=== PATIENT | female | born 1950 | race Hispanic/Latino ===

== ENCOUNTER 2023-06-25 05:00 | Day surgery (SDC) | payer MEDICARE ==
[2023-06-23 13:16] VITALS: BP 144/67; PULSE 78; RESP 18
[2023-06-25] VITALS (11 sets, daily range): BP systolic 152–171; BP diastolic 60–79; PULSE 84–92; RESP 15–20
[~2023-06-25] VITALS: Ht 160 cm; Wt 147.0 kg
[~2023-06-25 05:00] MED LIST: ACET-66 PO; ALEN70TA80 PO; AMLO-258 PO; ATOR40TA71 PO; CLOP75TA32 PO; DICL20GE TP; DOCU100C33 PO; EMPA25TA PO; ERGOCALCIFEROL PO; ESCI5TAB16 PO; EUCA1LOZ MM; FAMO20TA8 PO; FERR324T4 PO; FOLIC ACID PO; GABA-534 PO; HYDR12.54 PO; INSU100C6 SQ; INSU100V12 SQ; LEVO50TA11 PO; PIOG45TA64 PO; SITA100T12 PO; VITAMIN C PO; ZINC50TA64 PO; [UNRECOGNIZED DRUG - CODE] PO
[2023-06-25] MEDS ORDERED: 0.9%NACL 1000ML 1,000 ML IV ONE (06:24)
[2023-06-25] MEDS ORDERED: IPRATROPIUM/ALBUTEROL SULFATE 3 ML SOLUTION IH STA (11:10)
[2023-06-25] MEDS ORDERED: IPRATROPIUM/ALBUTEROL SULFATE 3 ML SOLUTION IH ONE (11:15)
[2023-06-25] MEDS ORDERED: PROPOFOL 10 MG/ML 20ML VIAL IV ONE ×3 (11:20→11:22)
== END 2023-06-25 12:00 | disposition home or self-care (01) ==
LOC: ENDO 05:00
PROVIDERS: ATTEND Internal Medicine Gastroenterology
DX: R12 Heartburn (principal); K21.00 Gastro-esophageal reflux disease with esophagitis, without bleeding; K29.50 Unspecified chronic gastritis without bleeding; E11.9 Type 2 diabetes mellitus without complications; I10 Essential (primary) hypertension; E66.01 Morbid (severe) obesity due to excess calories; M81.0 Age-related osteoporosis without current pathological fracture; E78.5 Hyperlipidemia, unspecified; G40.909 Epilepsy, unspecified, not intractable, without status epilepticus; F32.A Depression, unspecified; I69.859 Hemiplegia and hemiparesis following other cerebrovascular disease affecting unspecified side; Z79.1 Long term (current) use of non-steroidal anti-inflammatories (NSAID); Z98.51 Tubal ligation status; Z79.899 Other long term (current) drug therapy; Z98.890 Other specified postprocedural states; Z68.43 Body mass index [BMI] 50.0-59.9, adult
CPT/HCPCS: 82948; 43239; 94640; J7030 ×2; J2704 ×3; A4620; A4215 ×2; A4223; A7002; A4222; A4221; A4663; A4216; A4606; J3490